=== PATIENT | male | born 1955 | race Caucasian/White ===

== ENCOUNTER → 2020-12-01 | Day surgery (SDC) | payer MEDICARE, BC ==
--- OUTSIDE RECORDS SUMMARY | 2020-11-16 09:41 | XMSREPORT | Referral Summary ---
:1955 Author Organization [facility], [facility] Address [address] [place] [address] [address] [place] [address] Care Team Providers Name Role Phone Freddy Sanchez MD Primary Care Provider Provider, Attributed RESOURCE Attributed Provider Unavailab le Reason for Referral Transitions of Care (Routine) Status Reason Specialty Diagnoses / Referred By Referred To Procedures Contact Contact New Request Patient Diagnoses [facility] of [facility], [address] [place], [place] [address] [phone] [address] Phone: [place] [address] Fax: Reason for Visit Reason Onset Date Comments Medical Question 11/01/2020 Encounter Details Date Type Department Care Team Description 11/01/2020 Telephone [facility] Michael Weiss MD Medical Question Family Medicine [address] [place], [place] [phone] Allergies Active Allergy Reactions Severity Noted Date Comments Codeine Nausea and Vomiting 11/23/2019 sweaty documented as of this encounter (statuses as of 11/01/2020) Medications Medication Sig Dispensed Refills Start Date End Date Status omeprazole (PRILOSEC) Take 20 mg by mouth 0 Active 20 mg capsule 1 time per day sildenafil (VIAGRA) Take 100 mg by 0 Active 100 MG tablet mouth 1 time a day as needed for other (Specify) Take 1 hour prior to anticipated sexual activity. diphenhydrAMINE-aceta Take 2 tablets by 0 Active minophen (TYLENOL PM) mouth at bedtime as 25-500 mg tablet needed erythromycin 5 mg/gm 0 12/03/2019 Active ophthalmic ointment documented as of this encounter (statuses as of 11/01/2020) Active Problems No known active problemsdocumented as of this encounter (statuses as of 11/01/2020) Immunizations Name Administration Dates Next Due FLU VACCINE TRIVALENT SINGLE 03/16/2011 DOSE(Fluvirin,Afluria) FLU VACCINE HIGH DOSE 65YR+(Fluzone) 02/26/2020 Influenza Vaccine 03/19/2013, 02/28/2012, 04/25/2010 Pneumococcal Conj PCV13 11/11/2018 TD,adult,unspecified 10/01/2017 TDAP 11/05/2006 Zoster Live(Zostavax) 06/07/2015 Zoster Recombinant (Shingrix) 10/01/2017 documented as of this encounter Social History Tobacco Use Types Packs/Day Years Used Date Former Smoker Cigarettes 2 11/22/1968 - 0 07/30/1989 Smokeless Tobacco: Never Used Sexually Active Control Partners Comments Yes Female Sex Assigned at Date Recorded Not on file documented as of this encounter Miscellaneous Notes Telephone Encounter - Sylvia Wolf - 11/01/2020 3:01 PM CDT Reynaldo called in response to the letter he received. He would like his colonoscopy done at [facility]. His last colonoscopy was done 3 years ago and he was told he should have it done in 3-5years because of polyps. documented in this encounter Plan of Treatment Date Type Specialty Care Team Description 05/18/2021 Office Visit Dermatology [place] MD [address] [facility] [place], [place] [address] [phone] Name Type Priority Associated Diagnoses Order S [facility] CLINIC REFERRAL Referral Routine History of colon polyps O rdered: 11/01/2020 ENDOSCOPY NON ONE CHART documented as of this encounter Visit Diagnoses Diagnosis History of colon polyps - Primary Personal history of colonic polyps documented in this encounter
[~2020-12-01] MED LIST: Midazolam 1 MG/ML 2 ML SDV ONE; Propofol 200 MG/20 ML SDV ONE; Sodium Chloride 0.9% 1,000 ML IV SCH; fentaNYL 100 MCG/2 ML SDV ONE
--- NOTE | 2020-12-01 13:20 | OR ---
DATE OF PROCEDURE: 12/01/2020 SURGEON: Juan Marti MD PROCEDURE: Colonoscopy. FINDINGS: Ascending colon polyp, approximately 5 mm, completely removed using cold biopsy forceps. COMPLICATIONS: None. HAND REAMER: None. PREOPERATIVE DIAGNOSIS: Family history of colorectal cancer. POSTOPERATIVE DIAGNOSIS: Family history of colorectal cancer. RISKS: Risks, benefits, alternatives, and limitations including, but not limited to infection, bleeding, perforation, false positives and false negatives were explained. The patient wished to proceed. PROCEDURE IN DETAIL: The patient was placed in left lateral decubitus position. Digital rectal exam was performed without abnormality. The scope was introduced and advanced atraumatically to the ileocecal valve. A photo was taken of the appendiceal orifice. Scope was brought back to the ascending, transverse, descending colon, and retroflexed. No evidence of old or new blood. No masses. The aforementioned polyp was identified and completely removed. No abnormalities on retroflexion. Greater than 8 minutes was spent removing the scope. The patient tolerated the procedure well. The prep was acceptable, approximately 90% luminal surface could be seen. The patient tolerated procedure well. Juan Marti MD /[id number]
== END ==
LOC: JP.SDS 07:27
PROVIDERS: ATTEND Surgery
DX: Z12.11 Encounter for screening for malignant neoplasm of colon (principal); K63.5 Polyp of colon; K21.9 Gastro-esophageal reflux disease without esophagitis; Z86.010 Personal history of colon polyps; Z88.6 Allergy status to analgesic agent; Z80.0 Family history of malignant neoplasm of digestive organs
CPT/HCPCS: 45380; J2250; J2704; J3010; J7030

== ENCOUNTER 2023-05-10 20:09 | Emergency (ER) | payer MEDICARE, BC ==
[2023-05-10 21:37] LABS: CORONAVIRUS COVID-19 NAA NEGATIVE (NEGATIVE); INFLUENZA A NAA NEGATIVE (NEGATIVE); INFLUENZA B NAA NEGATIVE (NEGATIVE); RESPIRATORY SYNCYTIAL VIR NAA NEGATIVE (NEGATIVE)
== END 2023-05-10 22:29 | disposition home or self-care (01) ==
LOC: JP.ED 20:09
DX: R68.83 Chills (without fever) (principal); N18.4 Chronic kidney disease, stage 4 (severe); Z79.899 Other long term (current) drug therapy; Z88.5 Allergy status to narcotic agent; Z20.822 Contact with and (suspected) exposure to COVID-19
CPT/HCPCS: 0241U; 99283

== ENCOUNTER 2023-12-18 06:55 | Day surgery (SDC) | payer MEDICARE, BC ==
[2023-12-18] MEDS ORDERED: Propofol 200 MG/20 ML SDV ONE (07:03)
[2023-12-18] MEDS ORDERED: fentaNYL 50 MCG/ML SDV ONE (07:03)
[2023-12-18] MEDS: Sodium Chloride 0.9% 1,000 ML IV SCH (08:05)
== END 2023-12-18 10:15 | disposition home or self-care (01) ==
LOC: JP.SDS 06:55
PROVIDERS: ATTEND Surgery
DX: Z12.11 Encounter for screening for malignant neoplasm of colon (principal); K21.9 Gastro-esophageal reflux disease without esophagitis
CPT/HCPCS: 00812-QZ; J2704; J3010; J7030